=== PATIENT | female | born 1930 | race Caucasian/White ===

== ENCOUNTER 2016-12-26 11:50 | Inpatient (IN) ==
--- NOTE | 2016-12-26 13:17 | Emergency Department Note ---
Arrival - Arrival Chief Complaint: Fall Stated Complaint: fell twice,slurred stuttering speech ED Nursing Triage Note: PT HAS FALLEN TWICE, ONCE MONDAY AND AGAIN YESTERDAY. DAUGHTER STATES SHE NOTICED SLURRED/STUTTERING SPEECH ON MONDAY. NO SLURRED SPEECH OR FACIAL DROOP NOTED AT TRIAGE. PT DENIES PAIN. Mode of Arrival: Wheelchair Limitations: No Limitations Source: Patient Time Seen by Provider: 12/26/16 13:13 - History of Present Illness HPI Narrative: This 86-year-old white female presents post 2 falls in the last 5 days. Both are believed to be due to her shuffling gait and catching her feet on a doorstep. The patient denies any significant injury including to the head although the daughter has stated she observed transient slurred stuttering speech 24 hours after the first fall. The patient is alert but oriented only to person and place place but not time. She states she feels fine although she has been experiencing dizziness intermittently for the past several days. In regards to this date she denies any chest pain, shortness of breath, diaphoresis , sinus complaints, visual disturbances, or focal deficit. In bed at rest she is in no acute distress. Onset (ago): day(s) (Patient presents 4 days post onset of symptoms) Allergies/Adverse Reactions: Allergies Allergy/AdvReac Type Severity Reaction Status Date / Time Penicillins Allergy RASH Verified 12/26/16 12:04 Sulfa (Sulfonamide Allergy RASH Verified 12/26/16 12:04 Antibiotics) Home Medications: Home Medications Medication Instructions Recorded Confirmed Type Clindamycin Cap [Cleocin Cap] 300 mg PO Q8HR #30 capsule 11/01/16 Rx traMADol TAB [Ultram] 50 mg PO Q6H PRN #20 tablet 11/01/16 Rx Review of System - Review of System 12 point system: reviewed and no additional remarkable complaints except as stated - Review of System Constitutional: Present: as per HPI Respiratory: Present: as per HPI Cardiovascular: Present: as per HPI Gastrointestinal: Present: as per HPI Neurological: Present: as per HPI Medical,Surgical,& Family Hx - Medical History Cardio: History of: Hypertension Endocrine: History of: Thyroid Disorder Gastrointestinal: History of: GERD - Surgical History Abdominal Surgeries: Surgical HX of: Cholecystectomy - Social History Smoking Status: Never smoker Frequency of Alcohol Use: None Type of Drug Use: None Exam Physical Examination: GENERAL: Well developed, well nourished elderly white female in no acute distress. HEENT: Normocephalic. No trauma. Moist mucous membranes. EOMI. PERRLA. No nystagmus ENT NML NECK: Supple. No adenopathy. CARDIAC: Regular. No murmurs. Heart rate 60 CHEST: Clear to auscultation. No respiratory distress. O2 sat 98% ABDOMEN: Soft. Nontender. Active bowel sounds. EXTREMITIES: No trauma. Normal ROM. No pedal edema. SKIN: No diaphoresis. No rash. NEURO: Alert. Oriented to person place but not time. Motor, sensory, vibratory intact. No focal deficits. Vital Signs: Vital Signs Temperature 98.5 F 12/26/16 12:48 Pulse Rate 60 12/26/16 12:48 Respiratory Rate 18 12/26/16 12:48 Blood Pressure 218/66 12/26/16 12:48 O2 Sat by Pulse Oximetry 98 12/26/16 11:57 Course - Reevaluation(s) Reevaluation #1: Advised family the need for further evaluation of new findings on CT. - Consultations Consultation #1: Discussed with hospitalist service who will admit for further evaluation treatment. Results - Labs CBC & BMP: 12/26/16 13:35 12/26/16 13:35 Labs: I have reviewed the laboratory noted the evidence of an early urinary tract infection. - Impressions EKG: Sinus bradycardia at 56 with lateral and inferior T-wave inversion throughout all leads. Normal AL interval and QRS duration. - Diagnostic Findings Procedure: Chest x-ray: image reviewed by me, report reviewed by me (Elevated right hemidiaphragm otherwise negative), CT: image reviewed by me, report reviewed by me (Head: Microvascular ischemic disease with new changes in the right cerebellar area) Disposition Clinical Impression: Right cerebellar infarct, Cystitis Case discussed with: patient, patient's family Disposition: Still a Patient Condition: Stable Time of Disposition: 15:13
--- NOTE | 2016-12-26 13:31 | CT Report ---
CT of the head without contrast. Indication: Dizziness. Comparison: March 17, 2016. There is calcific plaque present within the intracranial internal carotid arteries and vertebral arteries. There is bilateral basal ganglial calcification. There is no mass effect or midline shift. There is no evidence of acute hemorrhage. The internal auditory canals are of normal diameter. The included paranasal sinuses and the mastoid air cells are clear. Within the right cerebellar peduncle, and also possibly portions of the right cerebellar hemisphere, there is low-density not seen on the previous exam. There is a partial empty sella. There are areas of low density located within both cerebral hemispheres, within the white matter. The calvarium is intact. Impression: White matter changes, most likely attributable to chronic microvascular ischemia. Low density in the right cerebellar peduncle and portions of the right cerebellar hemisphere. This may be ischemic as well, but was not seen on the previous study. MRI of the brain is recommended for further evaluation. The CT exam was performed using one or more of the following dose reduction techniques: Automated exposure control, adjustment of the mA and/or kV according to patient size, or use of iterative reconstruction technique. PROCEDURE INTERPRETED AT [facility] DEPARTMENT OF RADIOLOGY Final Report Signed by: Dr. Jaleesa Mujica
[2016-12-26 13:48] LABS: Basophils % 0.4 % (0.0-0.8); Eosinophils # 0.1 10*3/uL (0.0-0.87); Eosinophils % 1.2 % (0.00-10.9); Hematocrit 40.8 VOL% (35.7-47.0); Hemoglobin 13.9 GM/DL (12.0-16.0); Immature Granulocytes % 0.4 %; Immature Granulocytes Absolute 0.03 #; Lymphocytes # 2.2 10*3/uL (1.4-4.0); Mean Corpuscular HGB Conc 34.1 GM/DL (32-36); Mean Corpuscular Hemoglobin 31 PG (27-34); Mean Corpuscular Volume 91.3 FL (87-102); Mean Platelet Volume 11.8 FL (9.6-12.0); Monocytes # 0.5 10*3/uL (0.11-0.8); Monocytes % 5.7 % (1.7-12.7); Neutrophils # 5.5 10*3/uL (1.4-7.4); Neutrophils % 66.3 % (38.7-73.9); Platelet Count 183 T/CUMM (130-400); Red Blood Count 4.47 MC/CUMM (3.8-5.5); Red Cell Distribution Width 12.7 % (9.3-17.3); White Blood Count 8.3 T/CUMM (4-12)
[2016-12-26 13:55] LABS: PT Patient Result 10.7 SECS
[2016-12-26 14:32] LABS: Apearance,Urine CLEAR (Clear); Bilirubin,Urine Negative (Negative); Blood, Urine Negative (Negative); Glucose,Urine (UA) Negative (Negative); Ketones,Urine Negative (Negative); Nitrite,Urine Negative (Negative); Protein,Urine Negative; Squamous Epithelial Cell,Urine Occasional /HPF (0-10); Urine Color Yellow (Yellow); Urine Specific Gravity 1.011 (1.001-1.035); Urine Urobilinogen < 2.0 EU/DL (0.2-1.0); WBC,Urine 5 /HPF (0-6)
[2016-12-26 14:34] LABS: Alkaline Phosphatase 64 U/L (45-117); Glucose 128 MG/DL (74-106); Total Protein 7.1 G/DL (6.4-8.3)
[2016-12-26 14:35] LABS: Sodium 139 MMOL/L (136-145)
[2016-12-26] MEDS ORDERED: PHENAZOPYRIDINE 95 MG TABLET PO STA (14:37)
[2016-12-26] MEDS ORDERED: CIPROFLOXACIN 500 MG TABLET PO STA (14:37)
[2016-12-26 14:55] LABS: Alanine Aminotransferase 28 U/L (13-56); Albumin 3.2 G/DL (3.4-5.0); Aspartate Amino Transferase 25 U/L (0-37); Blood Urea Nitrogen 20 MG/DL (7-18); Osmolality,Calculated 281.5 MOS/KG (273-304); Troponin I Only < 0.015 NG/ML (0.00-0.045)
--- NOTE | 2016-12-26 14:59 | Order Completion Report ---
See report scanned to EMR
[2016-12-26] MEDS ORDERED: CIPROFLOXACIN 500 MG TABLET ONE (15:02)
[2016-12-26] MEDS ORDERED: PHENAZOPYRIDINE 95 MG TABLET ONE (15:02)
[2016-12-26] MEDS ORDERED: LABETALOL 20 MG/4 ML SYRINGE IV PRN (15:37)
--- NOTE | 2016-12-26 15:53 | Hospitalist History & Physical ---
Assessment and Plan (1) Stroke Status: Acute Current Visit: Yes (2) Frequent falls Status: Acute Current Visit: Yes (3) Slurred speech Status: Acute Current Visit: Yes (4) Flipped T waves on EKG Status: Acute Assessment and plan: Our plan for this patient 1. Admit the patient to monitored bed 2. MRI of the brain 3. Carotid ultrasound 4. 2D echo 5. Serial troponins 6. Neurology consult 7. Cardiology consult 8. Full code 9. Confirm home medications 10. Antibiotics for urinary tract infection 11. Culture urine Current Visit: Yes (5) UTI (urinary tract infection) Status: Acute Current Visit: Yes History of Present Illness Chief complaint: Fall 2 and slurred speech History of present illness: Ms. Lozano is a 86 year old female with past medical history significant for hypertension, thyroid disorder, reflux and chronic cystitis who was in her normal state of health until several days ago. Patient's family reports that she has fallen twice. This occurred yesterday and 4 days ago. Daughter also reports during that time that she has had problems with her speech with slurring and stuttering. This seems to come and come and go. Family denies that patient has any history of dementia. They do report that she has developed a shuffled gait for a month or 2. There has been no localized weakness and patient was brought up here for further evaluation. Patient was found to have a possible cerebellar stroke and changes on her EKG I was consulted for admission. I am admitting her to the emergency room. Home Medications Medication Instructions Recorded Confirmed Type Clindamycin Cap [Cleocin Cap] 300 mg PO Q8HR #30 capsule 11/01/16 Rx traMADol TAB [Ultram] 50 mg PO Q6H PRN #20 tablet 11/01/16 Rx Allergies Allergy/AdvReac Type Severity Reaction Status Date / Time Penicillins Allergy RASH Verified 12/26/16 12:04 Sulfa (Sulfonamide Allergy RASH Verified 12/26/16 12:04 Antibiotics) Medical,Surgical,& Family Hx - Medical History Cardio: History of: Hypertension Endocrine: History of: Thyroid Disorder Gastrointestinal: History of: GERD - Surgical History Abdominal Surgeries: Surgical HX of: Cholecystectomy - Family History Family History: Reports;: Family Cancer, Family Diabetes, Family Heart Disease - Social History Smoking Status: Never smoker Frequency of Alcohol Use: None Type of Drug Use: None 12 point system: reviewed and no additional remarkable complaints except as stated - Neurological Neurological: Present: abnormal gait, abnormal speech, dizziness, frequent falls Exam - Constitutional Vitals: Period Temp Pulse Resp BP Sys/Lua Pulse Ox Last 24 Hr 98.5 F-98.5 F 60-60 18-18 218-218/66-66 98 General appearance: normal weight - Head Head exam: Present: normal inspection - Eye Eye exam: Present: EOMI Pupils: Present: ANDREW - ENT ENT exam: Present: normal exam - Neck Neck exam: Present: normal inspection - Respiratory Respiratory exam: Present: clear to auscultation bilaterally - Cardiovascular Cardiovascular exam: Present: regular rate and rhythm - GI/Abdominal GI/Abdominal exam: Present: normal bowel sounds - Extremities Exam Extremities exam: Present: normal inspection - Back Exam Back exam: Present: normal inspection - Neurological Exam Neurological exam: Present: alert, oriented X3 - Psychiatric Psychiatric exam: Present: normal affect, normal mood - Skin Skin exam: Present: normal color Results - Labs CBC & BMP: 12/26/16 13:35 12/26/16 13:35
[2016-12-26] MEDS ORDERED: ENOXAPARIN 40 MG/0.4 ML SYRINGE SUBCUT SCH (16:00)
[2016-12-26 16:10] LABS: Risk Ratio 3.55
--- NOTE | 2016-12-26 17:45 | Ultrasound Report ---
Bilateral carotid Doppler. Grayscale, color-flow, and spectral analysis performed and interpreted. Indication: Stroke. There is heavy mixed at the sclerotic change seen within each carotid artery system. There is bilateral spectral broadening. The right internal carotid artery peak systolic velocity is 160 cm/s, with an IC/CC ratio of 1.2. The left internal carotid artery peak systolic velocity is 288 cm/s, with an IC/CC ratio of 3.0. There is antegrade flow within each vertebral artery. Impression: Peak systolic velocities are elevated bilaterally. There is elevation of the left IC/CC ratio. Using NASCET criteria, the findings are cortical on the right, and consistent with a greater than 50% stenosis on the left. In addition, significant plaque is visible bilaterally. Contrasted carotid artery MRI recommended. The Ultrasound images were captured and stored. PROCEDURE INTERPRETED AT [facility] DEPARTMENT OF RADIOLOGY Final Report Signed by: Dr. Jaleesa Mujica
[2016-12-26] MEDS: ASPIRIN 325 MG TABLET PO SCH (17:52)
--- NOTE | 2016-12-26 18:01 | XRay Report ---
2 view chest. Indication: Shortness of breath. Comparison: May 26, 2009. There is new elevation of the right hemidiaphragm. The heart size is normal. There is scarring at the left lung base. The pulmonary vasculature is normal. No consolidation, pneumothorax, or pleural effusion. Bridging osteophytes within the thoracic spine. Surgical clips in the right upper quadrant. Impression: Interval development of elevation of the right hemidiaphragm, nonspecific. Scarring at the left lung base, stable. PROCEDURE INTERPRETED AT [facility] DEPARTMENT OF RADIOLOGY Final Report Signed by: Dr. Jaleesa Mujica
[2016-12-27] MEDS: CIPROFLOXACIN 500 MG TABLET PO SCH ×3 (01:20→21:32)
[2016-12-27] MEDS: ASPIRIN 325 MG TABLET PO SCH (08:26)
[2016-12-27] MEDS ORDERED: LORazepam 1 MG TABLET PO ONE (09:05)
--- NOTE | 2016-12-27 09:36 | Cardiology Consult Note ---
Assessment and Plan - Time spent with patient Time spent with patient: Greater than 30 minutes (1) Hypertension Status: Chronic Assessment and plan: SEE PLAN OF CARE LISTED BELOW Current Visit: Yes (2) Dyslipidemia Status: Chronic Assessment and plan: SEE PLAN OF CARE LISTED BELOW Current Visit: Yes (3) Stroke Status: Acute Assessment and plan: SEE PLAN OF CARE LISTED BELOW Current Visit: Yes (4) Flipped T waves on EKG Status: Acute Assessment and plan: SEE PLAN OF CARE LISTED BELOW Current Visit: Yes (5) UTI (urinary tract infection) Status: Acute Assessment and plan: SEE PLAN OF CARE LISTED BELOW Current Visit: Yes History of Present Illness - Data of Consult Patient: new to practice Consult date: 12/27/16 Requesting Physician: Akbar Nevarez Primary care physician: Bartolo Fang - Consult Narrative Reason for consult: Inverted t waves EKG History of present illness: SALES ADVISORY MANAGER: DR. WATSON ([facility]) PCP: DR. BARTOLO VENTURA SUMMARY: Ms. Lozano, 86WF, without prior history of known CAD but risk factors significant for: age, hypertension, dyslipidemia, sedentary lifestyle. Admitted December 26, 2016 for possible CVA. Daughter found her mother on the floor with difficulty speaking (stuttering). She was brought to the emergency department, underwent CT head which revealed possible right cerebellar ischemic change. (Awaiting MRI of brain today). She has been falling a lot over the past several weeks and has developed a shuffling gait per daughter. Ms. Lozano reports that she is having no unilateral weakness of extremities causing her to fall she just has decreased muscles strength in both of her lower extremities. Systolic blood pressure 218 on arrival. Cardiology was consulted for evaluation of inverted T waves on EKG. Patient denies chest pain, heaviness, tightness or shortness of breath. She performs basic housework at home and can perform these activities without complaints of angina. First set of cardiac biomarkers is negative. Carotid ultrasound: Greater than 50% stenosis of the left internal carotid artery. Patient does see Dr. Fang and believes that she manages her blood pressure well. She has been under a significant amount of stress over the past month as her younger sister (age 82) suddenly from brain aneurysm early November 2016. DECEMBER 27, 2016: Denies chest pain, heaviness, tightness. Denies shortness of breath. Patient is awaiting MRI of brain. She is also being treated for urinary tract infection with Ciprofloxacin. Systolic blood pressure 160s overnight. Patient takes Carvedilol and Losartan (home meds). I will restart only Carvedilol this morning as I do not want to drop her blood pressure too significantly in the setting of an acute CVA. EKG has been ordered and will cycle her cardiac biomarkers 2. Restarted her lipid-lowering agent as well. I suspect patient's inverted T waves are related to her acute cerebellar ischemia. I will order an echocardiogram and follow telemetry to make she is not having any arrhythmia such as atrial fibrillation contributing to CVA. Will further discuss with Dr. Watson and await additional recommendations. DECEMBER 27, 2016 REVIEW OF SYSTEMS: Cardiovascular: Denies chest pain, heaviness, tightness. Denies palpitations Pulmonary: Denies shortness of breath, PND or orthopnea Gastrointestinal: Denies abdominal pain, nausea, vomiting. Bowel movement last evening. IMPRESSION/PLAN: 1. ABNORMAL EKG - inverted T waves most likely related to acute CVA. Unfortunately, we do not have a prior EKG to compare. Continue to follow EKG, telemetry, cardiac biomarkers. 2. ACUTE CVA SUSPECTED - echocardiogram. Neurology has been consulted. Undergoing MRI of brain today. 3. HYPERTENSION - will allow for permissive hypertension in the setting of possible acute CVA. Restarting Coreg this morning 4. DYSLIPIDEMIA - fasting lipid profile. Restarting her home medication of pravastatin 40 mg each evening CC: Amanda Pina MD - Home Medications and Allergies Home Medications: Home Medications Medication Instructions Recorded Confirmed Type Carvedilol [Coreg] 6.25 mg PO BID 12/27/16 12/27/16 History Donepezil HCl 10 mg PO DAILY 12/27/16 12/27/16 History Esomeprazole Magnesium [Nexium] 40 mg PO DAILY 12/27/16 12/27/16 History Levothyroxine Tab [Synthroid Tab] 112 mcg PO DAILY@0700 12/27/16 12/27/16 History Losartan [Cozaar] 50 mg PO DAILY 12/27/16 12/27/16 History Pravastatin [Pravachol] 40 mg PO DAILY 12/27/16 12/27/16 History Sertraline [Zoloft] 50 mg PO DAILY 12/27/16 12/27/16 History Allergies/Adverse Reactions: Allergies Allergy/AdvReac Type Severity Reaction Status Date / Time Penicillins Allergy RASH Verified 12/26/16 12:04 Sulfa (Sulfonamide Allergy RASH Verified 12/26/16 12:04 Antibiotics) Review of systems: REVIEW OF SYSTEMS: - Constitutional Constitutional: Present: Fatigue over the past month. Absent: syncope, anorexia, night sweats - EENT Eyes: Absent: blurry vision, loss of vision, diplopia Ears: Absent: decreased hearing, ear pain, ear discharge - Cardiovascular Cardiovascular: Denies: chest pain with exertion, dyspnea on exertion, edema, palpitations. Absent: chest pain with deep breath, claudication - Respiratory Respiratory: Denies: [place], cough. Absent: wheezing, hemoptysis, change in phlegm color - Gastrointestinal Gastrointestinal: Denies: constipation. Absent: abdominal pain, hematemesis, hematochezia, melena, change in bowel habits, nausea - Genitourinary Genitourinary: Absent: difficulty urinating, dysuria, urinary hesitancy, flank pain - Musculoskeletal Musculoskeletal: Present: back pain Absent: joint swelling, muscle cramps, muscle weakness - Neurological Neurological: Present: normal gait without frequent falls. Absent: dizziness, hemiparesis - Psychiatric Psychiatric: believes her mother has had some depression of the past month since patient's sister suddenly. Denies anxiety, difficulty concentrating - Endocrine Endocrine: Absent: cold intolerance, heat intolerance, polyuria, polyphagia, polydipsia - Hematologic/Lymphatic Hematologic/Lymphatic: Present: easy bruising. Absent: easy bleeding -Integumentary Integumentary: Absent: lesions, rashes, skin breakdown Medical,Surgical,& Family Hx - Medical History Cardio: History of: Hypertension No history of: CAD, [place], Valvular Heart Disease HEENT: History of: HEENT Problems (occasional sinus) Endocrine: History of: Thyroid Disorder Genitourinary: History of: Recurring Urinary Tract Infections Gastrointestinal: History of: GERD Musculoskeletal: History of: Musculoskeletal Problems (arthritis) - Surgical History Abdominal Surgeries: Surgical HX of: Cholecystectomy - Family History Family History: Reports;: Family Cancer (brother), Family Diabetes (sister), Family Heart Disease (mother, father), Family Hypertension (mother) Denies;: Family Anesthesia Reaction, Family Hematology, Family Psychiatric Problems, Family Stroke, Additional Family History - Social History Smoking Status: Never smoker Have you smoked in the last 12 months: No Frequency of Alcohol Use: None Type of Drug Use: None Marital Status: Lives With:: Alone Functional capacity: independent ambulation Physical Examination Vital Signs Temp Pulse Resp BP Pulse Ox 98.5 F 60 18 218/66 98 12/26/16 11:57 12/26/16 11:57 12/26/16 11:57 12/26/16 11:57 12/26/16 11:57 Exam: General: [Appears well with no apparent distress.] [Pleasant and cooperative. ] [Appears comfortable.] HEENT: [PERRL, normocephalic, atraumatic. Mucous membranes moist. No jaundice noted. Conjunctiva moist and clear, sclerae anicteric. Patient does have frequent stuttering with initiation of conversation] Neck: No obvious JVD/HJR, no thyromegaly or lymphadenopathy noted. No carotid bruit appreciated Cardiac: [Regular rate and rhythm.] [No obvious murmur, rub or gallop.] Lungs: [Clear to auscultation without accessory muscle use to assist the respiratory pattern.] Not requiring oxygen Abdomen: Soft, bowel sounds normoactive. Nontender and nondistended. No abdominal bruit or thrill noted. No masses noted. Musculoskeletal: No fluid collection. Decreased range of motion is noted. Extremities: No clubbing, cyanosis noted. [ No edema noted.] Upper extremity pulses 2+. Lower extremity pulses 2+. Capillary refill less than 3 seconds. Skin: No unusual lesions or rashes. No skin breakdown appreciated. Neuro: Awake, alert and oriented 3. Moves all extremities well without hemiparesis or paralysis. No essential tremor is appreciated. Result/EKG - Labs CBC & BMP: 12/26/16 13:35 12/26/16 13:35 Lab Results: I have reviewed the past 24 hour labs Labs: Laboratory Results - last 24 hr 12/26/16 12/26/16 12/26/16 13:35 13:35 13:35 WBC 8.3 RBC 4.47 Hgb 13.9 Hct 40.8 MCV 91.3 MCH 31 MCHC 34.1 RDW 12.7 Plt Count 183 MPV 11.8 Neut % (Auto) 66.3 Lymph % (Auto) 26.0 Craig % (Auto) 5.7 Eos % (Auto) 1.2 Baso % (Auto) 0.4 Neut # (Auto) 5.5 Lymph # (Auto) 2.2 Craig # (Auto) 0.5 Eos # (Auto) 0.1 Baso # (Auto) 0.0 Immature Gran % 0.4 Nucleated RBC % 0.0 Immature Gran # 0.03 Nucleated RBCs # 0.00 Immature Plt Fraction 0.0 INR 1.0 PT Patient/Control Mix 10.7 Sodium 139 Potassium 4.0 Chloride 105 Carbon Dioxide 25 Anion Gap 13.0 BUN 20 H Creatinine 1.20 H GFR Calculation 49 BUN/Creatinine Ratio 18.00 Glucose 128 H Hemoglobin A1c Calculated Osmolality 281.5 Calcium 9.0 Total Bilirubin 0.50 AST 25 ALT 28 Alkaline Phosphatase 64 Total Creatine Kinase 154 CK-MB (CK-2) 2.8 Troponin I < 0.015 B-Natriuretic Peptide Total Protein 7.1 Albumin 3.2 L Globulin 3.9 H Albumin/Globulin Ratio 0.8 L Triglycerides Cholesterol LDL Cholesterol VLDL Cholesterol HDL Cholesterol Heart Disease Risk Ratio Urine Color Urine Appearance Urine pH Ur Specific [place]ey Urine Protein Urine Glucose (UA) Urine Ketones Urine Blood Urine Nitrate Urine Bilirubin Urine Urobilinogen Urine Leukocytes Urine WBC Ur Squamous Epith Cells Ur Culture Indicated? 12/26/16 12/26/16 12/26/16 13:35 13:35 13:35 WBC RBC Hgb Hct MCV MCH MCHC RDW Plt Count MPV Neut % (Auto) Lymph % (Auto) Craig % (Auto) Eos % (Auto) Baso % (Auto) Neut # (Auto) Lymph # (Auto) Craig # (Auto) Eos # (Auto) Baso # (Auto) Immature Gran % Nucleated RBC % Immature Gran # Nucleated RBCs # Immature Plt Fraction INR PT Patient/Control Mix Sodium Potassium Chloride Carbon Dioxide Anion Gap BUN Creatinine GFR Calculation BUN/Creatinine Ratio Glucose Hemoglobin A1c Calculated Osmolality Calcium Total Bilirubin AST ALT Alkaline Phosphatase Total Creatine Kinase CK-MB (CK-2) Troponin I B-Natriuretic Peptide 68 Total Protein Albumin Globulin Albumin/Globulin Ratio Triglycerides 115 Cholesterol 181 LDL Cholesterol 108.0 VLDL Cholesterol 23.0 HDL Cholesterol 51 Heart Disease Risk Ratio 3.55 Urine Color Yellow Urine Appearance Clear Urine pH 6.0 Ur Specific [place]ey 1.011 Urine Protein Negative Urine Glucose (UA) Negative Urine Ketones Negative Urine Blood Negative Urine Nitrate Negative Urine Bilirubin Negative Urine Urobilinogen < 2.0 H Urine Leukocytes Small H Urine WBC 5 Ur Squamous Epith Cells Occasional Ur Culture Indicated? Results to follow 12/26/16 12/26/16 12/26/16 13:35 18:49 21:39 WBC RBC Hgb Hct MCV MCH MCHC RDW Plt Count MPV Neut % (Auto) Lymph % (Auto) Craig % (Auto) Eos % (Auto) Baso % (Auto) Neut # (Auto) Lymph # (Auto) Craig # (Auto) Eos # (Auto) Baso # (Auto) Immature Gran % Nucleated RBC % Immature Gran # Nucleated RBCs # Immature Plt Fraction INR PT Patient/Control Mix Sodium Potassium Chloride Carbon Dioxide Anion Gap BUN Creatinine GFR Calculation BUN/Creatinine Ratio Glucose Hemoglobin A1c 5.9 Calculated Osmolality Calcium Total Bilirubin AST ALT Alkaline Phosphatase Total Creatine Kinase CK-MB (CK-2) Troponin I 0.019 0.025 B-Natriuretic Peptide Total Protein Albumin Globulin Albumin/Globulin Ratio Triglycerides Cholesterol LDL Cholesterol VLDL Cholesterol HDL Cholesterol Heart Disease Risk Ratio Urine Color Urine Appearance Urine pH Ur Specific [place]ey Urine Protein Urine Glucose (UA) Urine Ketones Urine Blood Urine Nitrate Urine Bilirubin Urine Urobilinogen Urine Leukocytes Urine WBC Ur Squamous Epith Cells Ur Culture Indicated? - Diagnostic Findings Procedure: Chest x-ray: report reviewed by me, CT: report reviewed by me, Ultrasound: report reviewed by me (Carotid) - EKG EKG results: interpreted by me EKG shows: sinus rhythm Quality Measures - Stroke Symptom Onset Unknown: Yes
[2016-12-27 09:37] LABS: Basophils % 0.5 % (0.0-0.8); Eosinophils # 0.1 10*3/uL (0.0-0.87); Eosinophils % 1.4 % (0.00-10.9); Hematocrit 39.3 VOL% (35.7-47.0); Hemoglobin 13.1 GM/DL (12.0-16.0); Immature Granulocytes % 0.5 %; Immature Granulocytes Absolute 0.03 #; Lymphocytes # 1.8 10*3/uL (1.4-4.0); Lymphocytes % 27.2 % (21.3-54.2); Mean Corpuscular HGB Conc 33.3 GM/DL (32-36); Mean Corpuscular Hemoglobin 31 PG (27-34); Mean Corpuscular Volume 91.6 FL (87-102); Mean Platelet Volume 11.6 FL (9.6-12.0); Monocytes # 0.3 10*3/uL (0.11-0.8); Neutrophils # 4.4 10*3/uL (1.4-7.4); Neutrophils % 65.4 % (38.7-73.9); Platelet Count 166 T/CUMM (130-400); Red Blood Count 4.29 MC/CUMM (3.8-5.5); Red Cell Distribution Width 12.7 % (9.3-17.3); White Blood Count 6.7 T/CUMM (4-12)
[2016-12-27 10:06] LABS: Calcium 8.6 MG/DL (8.5-10.1); Osmolality,Calculated 283.3 MOS/KG (273-304); Potassium 3.7 MMOL/L (3.5-5.1)
[2016-12-27 10:10] LABS: Risk Ratio 3.43; Troponin I Only 0.031 NG/ML (0.00-0.045); VLDL CHOLESTEROL 19.6 MG/DL
--- NOTE | 2016-12-27 10:46 | Order Completion Report ---
See report scanned to EMR
[2016-12-27] MEDS: SERTRALINE 50 MG TABLET PO SCH (10:54)
--- NOTE | 2016-12-27 11:05 | Hospitalist Progress Note ---
Hospitalist: Subjective Interval history: 86-year-old white female with history of frequent falls, admitted with fall and slurred speech, also found to have a UTI. Stroke workup is in progress. She is otherwise awake and alert. Exam - Constitutional Vitals: Period Temp Pulse Resp BP Sys/Lua Pulse Ox Last 24 Hr 97.5 F-98.5 F 60-90 18-19 161-218/56-75 92-98 Exam: General: No Acute Distress HEENT: Normocephalic, atraumatic, Extra ocular movements intact Neck: Supple, No JVD Chest: Clear to auscultation B/L CV: S1 + S2 audible without murmur, gallop or rub Abd: soft, NT, Non-distended, BS + Ext: No edema Skin: No purpura, bruising or rash Rheumatologic: No Joint deformities Neurologic: [Awake and alert, mild weakness left lower extremity Results - Labs CBC & BMP: 12/27/16 09:27 12/27/16 09:27 - Impressions Assessment and Plan: (1) Suspected acute stroke Status: Acute Current Visit: Yes Patient is scheduled for an MRI of the brain today (2) Frequent falls Status: Acute Current Visit: Yes Continue PT, she may need a swing bed (3) Slurred speech Status: Acute Current Visit: Yes Speech is better today (4) Deep inverted T waves on EKG Status: Acute Assessment and plan: Cardiology following Current Visit: Yes (5) UTI (urinary tract infection), POA Status: Acute Current Visit: Yes Continue Cipro, follow urine culture Plan of care discussed with the daughter who was visiting from [place] Quality Measures - Stroke Symptom Onset Unknown: Yes
[2016-12-27] MEDS: PANTOPRAZOLE 40 MG TABLET PO SCH (11:28)
--- NOTE | 2016-12-27 13:30 | Magnetic Resonance Report ---
Exam: MR head/brain wo con Date: 12/27/2016 3:44 PM Comparison: MRI brain 05/27/2009, CT brain 12/26/2016 Indication: Dizziness with possible CVA noted on CT, slurred speech, recent falls Technique:[Multiple acquisitions were obtained including sagittal T1] and axial ADC, diffusion, FLAIR, T2, GRE, and T1 scans without contrast only. Scans were obtained on an open 1.2 Nely magnet Findings: The ventricles remain normal in size with with no midline displacement. The pituitary has normal appearance and the cerebellar tonsils are normal in their location. 18 mm area of restricted diffusion at the junction of the right cerebellar peduncle/cerebellar hemisphere. 16 mm T1 hyperintensity noted in the left basal ganglia location. Progressive atrophy and FLAIR/T2 hyperintensities. Partially empty sella with the cerebellar tonsils normal in their location. No acute findings in the paranasal sinuses, orbits, temporal bones, or [place]. Impression: Progressive atrophy and microvascular disease. 18 mm acute ischemic infarction at the junction of right cerebellar peduncle/cerebellar hemisphere. 16 mm T1 hyperintense in the left basal ganglia location which may be related to acute hemorrhage. Follow-up CT is recommended for further evaluation as discussed with Dr. Reynolds at 1:25 PM on 12/27/2016. Critical test results PROCEDURE INTERPRETED AT [facility] DEPARTMENT OF RADIOLOGY Final Report Signed by: Dr. Julieta Ba
--- NOTE | 2016-12-27 13:34 | Neurology Consult Note ---
History of Present Illness History of present illness: Patient is unable to provide me any good history. History basically obtained from the chart. Ms. Lozano is a 86 year old female with past medical history significant for hypertension, thyroid disorder, reflux and chronic cystitis who was in her normal state of health until several days ago. Patient's family reports that she has fallen twice. This occurred yesterday and 4 days ago. Daughter also reports during that time that she has had problems with her speech with slurring and stuttering. This seems to come and come and go. Family report that she has developed a shuffled gait for a month or 2. There has been no localized weakness and patient was brought up here for further evaluation. She underwent MRI of the brain which revealed right acute cerebellar infarct. Home Medications Medication Instructions Recorded Confirmed Type Carvedilol [Coreg] 6.25 mg PO BID 12/27/16 12/27/16 History Donepezil HCl 10 mg PO DAILY 12/27/16 12/27/16 History Esomeprazole Magnesium [Nexium] 40 mg PO DAILY 12/27/16 12/27/16 History Levothyroxine Tab [Synthroid Tab] 112 mcg PO DAILY@0700 12/27/16 12/27/16 History Losartan [Cozaar] 50 mg PO DAILY 12/27/16 12/27/16 History Pravastatin [Pravachol] 40 mg PO DAILY 12/27/16 12/27/16 History Sertraline [Zoloft] 50 mg PO DAILY 12/27/16 12/27/16 History Allergies Allergy/AdvReac Type Severity Reaction Status Date / Time Penicillins Allergy RASH Verified 12/26/16 12:04 Sulfa (Sulfonamide Allergy RASH Verified 12/26/16 12:04 Antibiotics) 12 point system: reviewed and no additional remarkable complaints except as stated Medical,Surgical,& Family Hx - Medical History Cardio: History of: Hypertension No history of: CAD, [place], Valvular Heart Disease HEENT: History of: HEENT Problems (occasional sinus) Endocrine: History of: Thyroid Disorder Genitourinary: History of: Recurring Urinary Tract Infections Gastrointestinal: History of: GERD Musculoskeletal: History of: Musculoskeletal Problems (arthritis) - Surgical History Abdominal Surgeries: Surgical HX of: Cholecystectomy - Family History Family History: Reports;: Family Cancer (brother), Family Diabetes (sister), Family Heart Disease (mother, father), Family Hypertension (mother) Denies;: Family Anesthesia Reaction, Family Hematology, Family Psychiatric Problems, Family Stroke, Additional Family History - Social History Smoking Status: Never smoker Frequency of Alcohol Use: None Type of Drug Use: None Exam - Constitutional Vitals: Period Temp Pulse Resp BP Sys/Lua Pulse Ox Last 24 Hr 97.2 F-98.1 F 61-90 18-19 161-194/56-75 92-95 Exam: GENERAL: Patient is in no acute distress. NECK: Neck is supple. There is no JVD. No carotid bruits present. No thyroid masses. CVS: First and second heart sounds are normal. There is no S3 present. Regular rate and rhythm. RESPIRATORY: Lungs are clear to auscultation without any rales or rhonchi. ABDOMEN: Soft and non-tender. Bowel sounds are present. There is no hepatosplenomegaly. EXT: There is no palpable edema. Peripheral pulses are present. Skin: No rashes Central Nervous system: General: Alert, awake Speech: Fluent but dysarthric Comprehension: Fair Facial expressions: Normal Cranial Nerves: CN1/Olfactory: Normal CN II/ Optic: Normal, Visual Sands unreliable CN III, and : ANDREW & EOMI CN V: Normal & intact CN VII: face is symmetric CNVIII: Normal CN XI/X/XI/XII: Intact and Normal Motor: Bulk and Tone is normal. Strength in the right 3/5 Strength in the left 5/5 Sensory: Grossly intact for all the modalities of PP, LT and temp sense Reflexes: 1+ and symmetrical Cerebellar function: Dysmetria on the right side Toes: Equivocal Gait: Not tested at this Results - Labs CBC & BMP: 12/27/16 09:27 12/27/16 09:27 Assessment and Plan (1) Cerebellar stroke, acute Status: Acute Assessment and plan: Aggrenox 1 po bid Consult PT OT and ST Consult TMR Echo Thank you for the consult Current Visit: Yes
--- NOTE | 2016-12-27 14:19 | CT Report ---
CT of the head without contrast. Indication: MRI showed hyperintensity on T1 and in the left caudate region raising concern for possible hemorrhage. Comparison is also made to yesterday's CT. There is calcific plaque present within the vertebral arteries and intracranial internal carotid arteries. There is generalized atrophy of aging. There are findings of chronic microvascular ischemia within the periventricular white matter. There are tiny amounts of calcification within the basal ganglia bilaterally. These are all stable findings. A focus of ischemia in the right cerebellum and right cerebellar peduncle is more evident on today's exam, measuring under 2 cm. Corresponding to the abnormal focus of T1 signal in the left caudate region on today's MRI, no CT correlate can be seen. There is no mass effect or The frontal horn of the left lateral ventricle and no findings to suggest edema. The calvarium is intact. Included paranasal sinuses and mastoid air cells are clear. Impression: There is no CT correlate for the 16 mm abnormality in the left caudate head, which was only seen on T1 sequences, being hyperintense. Acute hemorrhage should be bright on CT, unless the patient is severely anemic, and correlation with H&H recommended. Subacute, approximately 5-1-[id number]-old hemorrhage can appear isodense on CT. However, there is no surrounding edema or mass effect on the ventricle. This finding was not seen on the previous MRI of May 27, 2009, therefore a lipid containing lesion is very unlikely. Other causes of increased T1 signal on MRI include increased mineral content including iron, copper, manganese, and proteinaceous or melanin containing lesions. Short-term follow-up MRI recommended. The CT exam was performed using one or more of the following dose reduction techniques: Automated exposure control, adjustment of the mA and/or kV according to patient size, or use of iterative reconstruction technique. PROCEDURE INTERPRETED AT [facility] DEPARTMENT OF RADIOLOGY Final Report Signed by: Dr. Jaleesa Mujica
[2016-12-27] MEDS: DIPYRIDAMOLE/ASPIRIN 200-25 MG CAPSULE PO SCH ×2 (15:26→21:32)
[2016-12-27] MEDS ORDERED: ENOXAPARIN 40 MG/0.4 ML SYRINGE SUBCUT SCH (16:30)
[2016-12-27 17:46] LABS: Troponin I Only 0.028 NG/ML (0.00-0.045)
[2016-12-27] MEDS ORDERED: PRAVASTATIN 40 MG TABLET PO SCH (21:00)
[2016-12-27] MEDS ORDERED: ATORVASTATIN 20 MG TABLET PO SCH (21:00)
[2016-12-27] MEDS: CARVEDILOL 6.25 MG TABLET PO SCH (21:32)
[2016-12-28 06:44] LABS: Basophils % 0.4 % (0.0-0.8); Eosinophils # 0.1 10*3/uL (0.0-0.87); Eosinophils % 1.9 % (0.00-10.9); Hematocrit 39.6 VOL% (35.7-47.0); Hemoglobin 13.2 GM/DL (12.0-16.0); Immature Granulocytes % 0.4 %; Immature Granulocytes Absolute 0.03 #; Lymphocytes # 1.5 10*3/uL (1.4-4.0); Lymphocytes % 21.7 % (21.3-54.2); Mean Corpuscular HGB Conc 33.3 GM/DL (32-36); Mean Corpuscular Hemoglobin 31 PG (27-34); Mean Corpuscular Volume 91.7 FL (87-102); Mean Platelet Volume 11.9 FL (9.6-12.0); Monocytes # 0.5 10*3/uL (0.11-0.8); Monocytes % 6.8 % (1.7-12.7); Neutrophils # 4.6 10*3/uL (1.4-7.4); Neutrophils % 68.8 % (38.7-73.9); Platelet Count 167 T/CUMM (130-400); Red Blood Count 4.32 MC/CUMM (3.8-5.5); Red Cell Distribution Width 12.6 % (9.3-17.3); White Blood Count 6.7 T/CUMM (4-12)
[2016-12-28] MEDS ORDERED: LEVOTHYROXINE 112 MCG TABLET PO SCH (07:00)
[2016-12-28 07:14] LABS: Calcium 8.9 MG/DL (8.5-10.1); Magnesium 2.2 MG/DL (1.8-2.4); Potassium 4.1 MMOL/L (3.5-5.1)
--- NOTE | 2016-12-28 08:22 | Cardiology Progress Note ---
Assessment and Plan - Time spent with patient Time spent with patient: Greater than 30 minutes (1) Hypertension Status: Chronic Assessment and plan: SEE PLAN OF CARE LISTED BELOW Current Visit: Yes (2) Dyslipidemia Status: Chronic Assessment and plan: SEE PLAN OF CARE LISTED BELOW Current Visit: Yes (3) Stroke Status: Acute Assessment and plan: SEE PLAN OF CARE LISTED BELOW Current Visit: Yes (4) Flipped T waves on EKG Status: Acute Assessment and plan: SEE PLAN OF CARE LISTED BELOW Current Visit: Yes (5) UTI (urinary tract infection) Status: Acute Assessment and plan: SEE PLAN OF CARE LISTED BELOW Current Visit: Yes Cardiology - PN: Subj Interval history: BIOMASS FACILITATOR: DR. WATSON (NEW) PCP: DR. PAULETTE VENTURA SUMMARY: Ms. Lozano, 86WF, without prior history of known CAD but risk factors significant for: age, hypertension, dyslipidemia, sedentary lifestyle. Admitted December 26, 2016 for possible CVA. Daughter found her mother on the floor with difficulty speaking (stuttering), had several falls the week prior to admission. Underwent CT head which revealed possible right cerebellar ischemic change. Underwent MRI of brain which confirmed right acute cerebellar infarct. (There was a question on MRI regarding possible hemorrhage but apparently does not have hemorrhage). Blood pressure was significantly elevated on arrival. Cardiology was consulted for evaluation of inverted T waves on EKG. Cardiac biomarkers negative. It is felt that T-wave inversion is most likely related to CVA and not cardiac ischemia. DECEMBER 28, 2016: Patient is followed for chronic, stable conditions to include CVA, dyslipidemia. She is followed for more acute conditions to include abnormal EKG, acute CVA and hypertension. Denies chest pain, heaviness, tightness. Denies shortness of breath, orthopnea or PND. Echocardiogram is pending. Carvedilol was reintroduced into her medication regimen yesterday and blood pressure remains elevated but improved. Today, home dose of Losartan is being introduced. Cardiac biomarkers remained negative overnight. It is felt that the T-wave inversions on EKG is most likely related to acute CVA and not cardiac ischemia. The patient does not have a hemorrhagic stroke, will benefit from some type of antiplatelet/anticoagulation. Will defer to attending to introduce. Will further discuss with Dr. Watson and await additional recommendations. DECEMBER 28, 2016 REVIEW OF SYSTEMS: Cardiovascular: Denies chest pain, heaviness, tightness. Denies palpitations Pulmonary: Denies shortness of breath, PND or orthopnea Gastrointestinal: Denies abdominal pain, nausea, vomiting. Bowel movement last evening. IMPRESSION/PLAN: 1. ABNORMAL EKG - inverted T waves felt likely related to acute CVA. Cardiac biomarkers negative. EKG this morning. No arrhythmias recorded 2. ACUTE CVA - echocardiogram results pending. Neurology has seen patient. Physical therapy and Occupational Therapy has been consulted. May benefit from Aspirin or other antiplatelet/anticoagulation if no hemorrhage. Will defer to attending in neurology to introduce. 3. HYPERTENSION - ARB started this morning. Will follow and adjust meds accordingly. 4. DYSLIPIDEMIA - LDL 158. Pravastatin has been initiated 5. UTI - currently on appropriate antibiotic regimen Exam (Progress Note) - Constitutional Vitals: Period Temp Pulse Resp BP Sys/Lua Pulse Ox Last 24 Hr 97.2 F-98.3 F 62-84 18-20 150-192/67-80 92-96 Exam: General: [Appears well with no apparent distress.] [Pleasant and cooperative. ] [Appears comfortable.] HEENT: [PERRL, normocephalic, atraumatic. Mucous membranes moist. No jaundice noted. Conjunctiva moist and clear, sclerae anicteric]. Stuttering speech Neck: No JVD/HJR, no thyromegaly or lymphadenopathy noted. No carotid bruit appreciated Cardiac: [Regular rate and rhythm.] [No obvious murmur rub or gallop.] Lungs: [Clear to auscultation without accessory muscle use to assist the respiratory pattern.] Not requiring oxygen Abdomen: Soft, bowel sounds normoactive. Nontender and nondistended. No abdominal bruit or thrill noted. No masses noted. Musculoskeletal: No fluid collection. Decreased range of motion is noted. Extremities: No clubbing, cyanosis noted. [ No edema noted.] Upper extremity pulses 2+. Lower extremity pulses 2+. Capillary refill less than 3 seconds. Skin: No unusual lesions or rashes. No skin breakdown appreciated. Neuro: Awake, alert and oriented 3. Moves all extremities well without hemiparesis or paralysis. No essential tremor is appreciated. Result/EKG - Labs CBC & BMP: 12/28/16 06:28 12/28/16 06:28 Lab Results: I have reviewed the past 24 hour labs Labs: Laboratory Results - last 24 hr 12/27/16 12/27/16 12/27/16 09:27 09:27 09:27 WBC 6.7 RBC 4.29 Hgb 13.1 Hct 39.3 MCV 91.6 MCH 31 MCHC 33.3 RDW 12.7 Plt Count 166 MPV 11.6 Neut % (Auto) 65.4 Lymph % (Auto) 27.2 [place] % (Auto) 5.0 Eos % (Auto) 1.4 Baso % (Auto) 0.5 Neut # (Auto) 4.4 Lymph # (Auto) 1.8 [place] # (Auto) 0.3 Eos # (Auto) 0.1 Baso # (Auto) 0.0 Immature Gran % 0.5 Nucleated RBC % 0.0 Immature Gran # 0.03 Nucleated RBCs # 0.00 Immature Plt Fraction 0.0 Sodium 141 Potassium 3.7 Chloride 107 Carbon Dioxide 27 Anion Gap 10.7 BUN 16 Creatinine 1.10 H GFR Calculation 54 BUN/Creatinine Ratio 14.00 Glucose 128 H POC Glucose Calculated Osmolality 283.3 Calcium 8.6 Magnesium 2.0 Total Creatine Kinase 182 CK-MB (CK-2) 2.8 Troponin I 0.031 Triglycerides Cholesterol LDL Cholesterol VLDL Cholesterol HDL Cholesterol Heart Disease Risk Ratio 12/27/16 12/27/16 12/28/16 09:27 16:55 06:28 WBC 6.7 RBC 4.32 Hgb 13.2 Hct 39.6 MCV 91.7 MCH 31 MCHC 33.3 RDW 12.6 Plt Count 167 MPV 11.9 Neut % (Auto) 68.8 Lymph % (Auto) 21.7 [place] % (Auto) 6.8 Eos % (Auto) 1.9 Baso % (Auto) 0.4 Neut # (Auto) 4.6 Lymph # (Auto) 1.5 [place] # (Auto) 0.5 Eos # (Auto) 0.1 Baso # (Auto) 0.0 Immature Gran % 0.4 Nucleated RBC % 0.0 Immature Gran # 0.03 Nucleated RBCs # 0.00 Immature Plt Fraction 0.0 Sodium Potassium Chloride Carbon Dioxide Anion Gap BUN Creatinine GFR Calculation BUN/Creatinine Ratio Glucose POC Glucose Calculated Osmolality Calcium Magnesium Total Creatine Kinase 167 CK-MB (CK-2) 2.7 Troponin I 0.028 Triglycerides 98 Cholesterol 158 LDL Cholesterol 86.0 VLDL Cholesterol 19.6 HDL Cholesterol 46 Heart Disease Risk Ratio 3.43 12/28/16 12/28/16 06:28 07:17 WBC RBC Hgb Hct MCV MCH MCHC RDW Plt Count MPV Neut % (Auto) Lymph % (Auto) [place] % (Auto) Eos % (Auto) Baso % (Auto) Neut # (Auto) Lymph # (Auto) [place] # (Auto) Eos # (Auto) Baso # (Auto) Immature Gran % Nucleated RBC % Immature Gran # Nucleated RBCs # Immature Plt Fraction Sodium 143 Potassium 4.1 Chloride 109 H Carbon Dioxide 28 Anion Gap 10.1 BUN 20 H Creatinine 1.10 H GFR Calculation 54 BUN/Creatinine Ratio 18.00 Glucose 111 H POC Glucose 107 H Calculated Osmolality 288.0 Calcium 8.9 Magnesium 2.2 Total Creatine Kinase CK-MB (CK-2) Troponin I Triglycerides Cholesterol LDL Cholesterol VLDL Cholesterol HDL Cholesterol Heart Disease Risk Ratio - Diagnostic Findings Procedure: Ultrasound: pending (Echocardiogram) - EKG EKG results: interpreted by me EKG shows: sinus rhythm Quality Measures - Stroke Symptom Onset Unknown: Yes
[2016-12-28] MEDS: CIPROFLOXACIN 500 MG TABLET PO SCH (08:48)
[2016-12-28] MEDS: DIPYRIDAMOLE/ASPIRIN 200-25 MG CAPSULE PO SCH (08:48)
[2016-12-28] MEDS: SERTRALINE 50 MG TABLET PO SCH (08:48)
[2016-12-28] MEDS: CARVEDILOL 6.25 MG TABLET PO SCH (08:48)
[2016-12-28] MEDS: PANTOPRAZOLE 40 MG TABLET PO SCH (08:48)
[2016-12-28] MEDS ORDERED: LOSARTAN 50 MG TABLET PO SCH (09:00)
[2016-12-28] MEDS ORDERED: PRAVASTATIN 40 MG TABLET PO SCH (09:00)
--- NOTE | 2016-12-28 10:03 | Order Completion Report ---
See report scanned to EMR
[2016-12-28] MEDS ORDERED: ONDANSETRON 4 MG/2 ML VIAL IV PRN (10:23)
--- NOTE | 2016-12-28 10:58 | Discharge Summary ---
<Porfirio Perry - Last Filed: 12/28/16 10:58> Hospital Course - Hospital Course Hospital Course: Mrs Lozano was admitted and treated for acute stroke. She was seen by neurology. She has been accepted to [facility] today. Her echo showed EF 55-60%. 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 LDL86, HgbA1C pending. MRA and hgba1c to be followed up at [facility]. On Aggrenox now. BP under better control, to be further refined at [facility]. She will follow up with her PCP after discharge from [facility]. Specialty Discharge - Follow Up or Referrals Follow up with: Your, PCP [Other] Discharge Plan - Discharge Data Disposition: Disch/Xfer-Ip Rehab Fac - Discharge Medications New Ciprofloxacin Tab [Cipro Tab] 500 mg PO Q12HR tablet Dipyridamole/Aspirin 200-25 [Aggrenox] 1 capsule PO BID capsule guanFACINE [Tenex] 1 mg PO BEDTIME tablet Continue Losartan [Cozaar] 50 mg PO DAILY Sertraline [Zoloft] 50 mg PO DAILY Levothyroxine Tab [Synthroid Tab] 112 mcg PO DAILY@0700 Carvedilol [Coreg] 6.25 mg PO BID Esomeprazole Magnesium [Nexium] 40 mg PO DAILY Donepezil HCl 10 mg PO DAILY Pravastatin [Pravachol] 40 mg PO DAILY - Follow Up or Referral - Forms/Instructions Instructions: Ischemic Stroke (DC), Self Care Measures After a Stroke (DC) Exam - Constitutional Vitals: Period Temp Pulse Resp BP Sys/Lua Pulse Ox Last 24 Hr 96.6 F-98.3 F 62-84 18-20 150-190/70-80 92-96 Discharge Results Procedures and tests throughout hospitalization: Pending Orders 12/26/16 15:37 Drug Screen, Urine Routine 12/29/16 04:00 BMP w/ Mg [Basic Metabolic Panel w/Mg] IN AM CBC [Comp Blood Count Auto Diff] IN AM Labs on day of discharge: Labs from last 24 hours 12/28/16 12/28/16 12/28/16 07:17 06:28 06:28 WBC 6.7 RBC 4.32 Hgb 13.2 Hct 39.6 MCV 91.7 MCH 31 MCHC 33.3 RDW 12.6 Plt Count 167 MPV 11.9 Neut % (Auto) 68.8 Lymph % (Auto) 21.7 [place] % (Auto) 6.8 Eos % (Auto) 1.9 Baso % (Auto) 0.4 Neut # (Auto) 4.6 Lymph # (Auto) 1.5 [place] # (Auto) 0.5 Eos # (Auto) 0.1 Baso # (Auto) 0.0 Immature Gran % 0.4 Nucleated RBC % 0.0 Immature Gran # 0.03 Nucleated RBCs # 0.00 Immature Plt Fraction 0.0 Sodium 143 Potassium 4.1 Chloride 109 H Carbon Dioxide 28 Anion Gap 10.1 BUN 20 H Creatinine 1.10 H GFR Calculation 54 BUN/Creatinine Ratio 18.00 Glucose 111 H POC Glucose 107 H Calculated Osmolality 288.0 Calcium 8.9 Magnesium 2.2 Total Creatine Kinase CK-MB (CK-2) Troponin I 12/27/16 16:55 WBC RBC Hgb Hct MCV MCH MCHC RDW Plt Count MPV Neut % (Auto) Lymph % (Auto) [place] % (Auto) Eos % (Auto) Baso % (Auto) Neut # (Auto) Lymph # (Auto) [place] # (Auto) Eos # (Auto) Baso # (Auto) Immature Gran % Nucleated RBC % Immature Gran # Nucleated RBCs # Immature Plt Fraction Sodium Potassium Chloride Carbon Dioxide Anion Gap BUN Creatinine GFR Calculation BUN/Creatinine Ratio Glucose POC Glucose Calculated Osmolality Calcium Magnesium Total Creatine Kinase 167 CK-MB (CK-2) 2.7 Troponin I 0.028 DS: Provider Date of admission: 12/26/16 15:11 Primary care physician: Bartolo Fang MD Attending physician on admission: Kevin Mena MD Consults: 12/26/16 15:37 Consult to Case Mgmt/Social Srvs [CONS] Routine Reason for Case Mgmt/Social Srvs: Discharge Planning Consult to Occupational Therapy [CONS] Routine Reason for Occupational Therapy: Evaluate and Treat Consult Comment: Stroke Consult to Physical Therapy [CONS] Routine Reason for Physical Therapy: Evaluate and Treat Consult Comment: stroke Consult to Physician [CONS] Routine Comment: Changes on EKG Consulting Provider: Jer Fernández Person Notified: Migue Date Notified: 12/27/16 Time Notified: 08:11 12/26/16 15:45 Consult to Physician [CONS] Routine Comment: Consulting Provider: Juan Jose Lopez Consult to Specialist Group: Neurology Person Notified: Martha Date Notified: 12/27/16 Time Notified: 08:36 12/27/16 13:37 Consult to Case Mgmt/Social Srvs [CONS] Routine Reason for Case Mgmt/Social Srvs: Rehab Discharging clinician: Porfirio Perry NP <Sangita Bruno - Last Filed: 12/28/16 15:31> Hospital Course - Time spent with patient Time with patient DS: Greater than 30 minutes (34 minutes required for discharge planning documentation, medicine reconciliation.) Diagnosis - Discharge Diagnosis (1) Frequent falls Status: Acute (2) Flipped T waves on EKG Status: Acute (3) Hypertension Status: Chronic (4) Dyslipidemia Status: Chronic (5) Cerebellar stroke, acute Status: Acute Discharge Plan - Discharge Data Discharge Diet: heart healthy, low fat, low cholesterol Activity: as per physical therapy Exam - Constitutional General appearance: no acute distress, morbidly obese - Eye Eye exam: Present: EOMI. Absent: scleral icterus - Respiratory Respiratory exam: Present: clear to auscultation bilaterally - Cardiovascular Cardiovascular exam: Present: regular rate and rhythm - GI/Abdominal GI/Abdominal exam: Present: normal bowel sounds, soft. Absent: tenderness - Extremities Exam Extremities exam: Absent: edema
[2016-12-28 12:34] VITALS: BP 154/67
--- NOTE | 2017-01-04 09:21 | Physician Query Form ---
CLICK EDIT DOCUMENT TO SELECT QUERY ANSWER --> OK --> SIGN Lindsey Calderón RN Clinical [employer]down [employer] Operator W) [phone] (f) [phone] [email or web address] PROVIDERS: Make your selection(s) from the choices in EACH section by typing an "x" and enter comments in the comment section. Please use your independent medical judgment in providing your response. This request does not imply that any particular answer is desired or expected. CLINICAL INDICATORS: (Providers should not edit this section) Based on documentation of "Acute Stroke" "Right cerebellar infarct" "Carotids showed greater than 50% stenosis" started on Aggrenox. Based on the above, could you clarify the appropriate diagnosis, if significant , that supports the above abnormalities and additional evaluation, monitoring, and/or treatment rendered: ( ) Acute Stroke due to Carotid Stenosis ( ) Acute Stroke NOT due to Carotid Stenosis ( ) Acute Stroke due to other (please specify) ( ) Other, please specify: ( x) Clinically unable to determine COMMENTS: PLEASE ALSO DOCUMENT RESPONSE IN PROGRESS NOTES AND/OR DISCHARGE SUMMARY Use of terms such as suspected, likely, or probable (associated with a specific diagnosis that is being evaluated, monitored, or treated as if it exists) are acceptable and can be restated in the discharge summary if not ruled out. MTDD
== END 2016-12-28 13:27 | DRG 65 ==
LOC: N.ED 11:50 → SUATTDRO 15:11 → N.EDINP 15:11 → N.5E 16:59
PROVIDERS: ADMIT Internal Medicine; ATTEND Internal Medicine